=== PATIENT | female | born 1995 | race Caucasian/White ===

== ENCOUNTER → 2020-07-29 14:52 | Outpatient (BNVA) | payer OTHER, SELFPAY | PROVIDERS: PCP Internal Medicine; Visit Provider Obstetrics & Gynecology ==

== ENCOUNTER 2020-08-18 15:54 | Outpatient (REF) | payer OTHER, SELFPAY ==
--- NOTE | ~2020-08-18 | US_ITS ---
EXAM: Pelvic Ultrasound CLINICAL INDICATION: Irregular periods COMPARISON: None TECHNIQUE: The pelvis was evaluated using transabdominal and transvaginal imaging. FINDINGS: The uterus measures 6.7 x 2.7 x 4.6 cm in longitudinal by AP by transverse dimension. Linear echogenic structure within the endometrium is consistent with a properly positioned IUD. Evaluation of the endometrium is suboptimal secondary to artifact from IUD, however, the endometrial stripe does not appear thickened. The left ovary measures approximately 2.8 x 1.6 x 1.6 cm and is normal. The right ovary measures approximately 3.3 x 2.2 x 2.2 cm and contains a few prominent follicles versus small cysts, the largest measuring approximately 2 cm. There is no free fluid in the pelvis. US/US transvaginal IMPRESSION: 1. IUD in expected position. 2. Evaluation of the endometrium is suboptimal secondary to artifact from IUD, however, the endometrial stripe does not appear thickened. 3. Prominent follicles versus small cysts of the right ovary.
--- NOTE | ~2020-08-18 | US_ITS ---
EXAM: Pelvic Ultrasound CLINICAL INDICATION: Irregular periods COMPARISON: None TECHNIQUE: The pelvis was evaluated using transabdominal and transvaginal imaging. FINDINGS: The uterus measures 6.7 x 2.7 x 4.6 cm in longitudinal by AP by transverse dimension. Linear echogenic structure within the endometrium is consistent with a properly positioned IUD. Evaluation of the endometrium is suboptimal secondary to artifact from IUD, however, the endometrial stripe does not appear thickened. The left ovary measures approximately 2.8 x 1.6 x 1.6 cm and is normal. The right ovary measures approximately 3.3 x 2.2 x 2.2 cm and contains a few prominent follicles versus small cysts, the largest measuring approximately 2 cm. There is no free fluid in the pelvis. US/US pelvic complete IMPRESSION: 1. IUD in expected position. 2. Evaluation of the endometrium is suboptimal secondary to artifact from IUD, however, the endometrial stripe does not appear thickened. 3. Prominent follicles versus small cysts of the right ovary.
== END 2020-08-18 15:55 | disposition home or self-care (01) ==
LOC: HO.US 15:54
PROVIDERS: PCP Internal Medicine; Visit Provider Obstetrics & Gynecology
DX: N92.1 Excessive and frequent menstruation with irregular cycle (principal)
CPT/HCPCS: 76830; 76856

== ENCOUNTER 2020-08-25 08:58 | Outpatient (REF) | payer OTHER, SELFPAY ==
[2020-08-26 04:44] LABS: HBS Num1 1.44 mIU/mL (0-7.99); ~Hepatitis B Surface Antibody NONREACTIVE (Nonreactive)
[2020-08-26 09:11] LABS: Rubella IgG Antibody 2.89 Index
[2020-08-27 22:26] LABS: TS Negative Control Passed; TS Panel A 0; TS Panel B 0; TS Positive Control Passed; TSpotTB Negative (SeeBelow)
== END 2020-08-25 08:59 | disposition home or self-care (01) ==
LOC: HO.HMGCLDS 08:58
PROVIDERS: Nurse Practitioner Family; PCP Internal Medicine; Visit Provider Obstetrics & Gynecology
DX: Z02.0 Encounter for examination for admission to educational institution (principal); Z11.1 Encounter for screening for respiratory tuberculosis; N92.1 Excessive and frequent menstruation with irregular cycle
CPT/HCPCS: 36415; 86481; 86706; 86735; 86762; 86765; 86787

== ENCOUNTER 2020-08-25 11:46 | Outpatient (REF) | payer OTHER, SELFPAY ==
[2020-08-26 06:01] LABS: CT PCR NOT DETECTED (Not Detect.); NG PCR NOT DETECTED (Not Detect.)
== END 2020-08-25 11:47 | disposition home or self-care (01) ==
LOC: HO.LAB 11:46
PROVIDERS: Visit Provider Obstetrics & Gynecology
DX: Z11.3 Encounter for screening for infections with a predominantly sexual mode of transmission (principal); N92.1 Excessive and frequent menstruation with irregular cycle
CPT/HCPCS: 87491; 87591

== ENCOUNTER 2020-10-08 13:23 | Outpatient (REF) | payer OTHER, SELFPAY ==
[2020-10-09 03:52] LABS: HBS Num1 > 1000.00 mIU/mL (0-7.99); ~Hepatitis B Surface Antibody REACTIVE (Nonreactive)
[2020-10-11 12:52] LABS: TS Negative Control Passed; TS Panel A 3; TS Panel B 1; TS Positive Control Passed; TSpotTB Negative (SeeBelow)
== END 2020-10-08 13:24 | disposition home or self-care (01) ==
LOC: HO.LAB 13:23
PROVIDERS: PCP Internal Medicine; Visit Provider Internal Medicine
DX: Z11.1 Encounter for screening for respiratory tuberculosis (principal); Z01.84 Encounter for antibody response examination; Z20.2 Contact with and (suspected) exposure to infections with a predominantly sexual mode of transmission
CPT/HCPCS: 36415; 86481; 86706

== ENCOUNTER 2021-04-20 08:36 | Outpatient (REF) | payer OTHER, SELFPAY ==
[2021-04-20 14:17] LABS: CT PCR NOT DETECTED (Not Detect.); NG PCR NOT DETECTED (Not Detect.)
== END 2021-04-20 08:37 | disposition home or self-care (01) ==
LOC: HO.LAB 08:36
PROVIDERS: PCP Internal Medicine; Visit Provider Obstetrics & Gynecology
DX: Z30.433 Encounter for removal and reinsertion of intrauterine contraceptive device (principal); Z83.3 Family history of diabetes mellitus; Z82.49 Family history of ischemic heart disease and other diseases of the circulatory system; Z80.3 Family history of malignant neoplasm of breast
CPT/HCPCS: 58300; 58301; 87491; 87591

== ENCOUNTER 2021-04-24 11:12 | Outpatient (REF) | payer OTHER, SELFPAY ==
[2021-04-24 12:30] LABS: Hematocrit 36.8 % (37.0-47.0); Hemoglobin 11.8 g/dl (12.0-16.0); Mean Corpuscular HGB Conc 32.1 g/dl (31.0-35.0); Mean Corpuscular Hemoglobin 28.1 pg (27.0-33.0); Mean Corpuscular Volume 87.6 fL (80.0-98.0); Mean Platelet Volume 10.1 fL (9.4-12.3); Platelet Count 279 X10*3/uL (160-400); Red Cell Distribution Width 12.7 % (11.0-16.0); White Blood Count 7.3 X10*3/uL (4.8-10.8)
[2021-04-24 12:52] LABS: Alanine Aminotransferase 11 U/L (0-31); Albumin Level 4.2 g/dL (3.5-5.0); Alkaline Phosphatase 44 U/L (39-117); Anion Gap 8 (12-20); Aspartate Amino Transferase 17 U/L (5-31); Bilirubin Total 1.5 mg/dL (0.0-1.0); Blood Urea Nitrogen 14 mg/dL (9-16); Calcium 8.9 mg/dL (8.4-10.2); Carbon Dioxide 25 mmol/L (22-29); Chloride 107 mmol/L (96-108); Cholesterol 156 mg/dL; Estimated Glomerular Filt Rate > 60; Glucose Fasting 91 mg/dL (60-99); HDL Cholesterol 63 mg/dL; Iron 164 mcg/dL (30-160); LDL Cholesterol Calculated 80 mg/dl; Percent Iron Saturation 58 % (15-50); Potassium 4.4 mmol/L (3.3-5.1); Sodium 136 mmol/L (135-145); Total Iron Binding Capacity 282 mcg/dL (228-428); Total Protein 6.6 g/dL (6.5-8.0); Triglycerides 68 mg/dL; Unsaturated Iron Binding 118 ug/dL
[2021-04-24 13:02] LABS: TSH reflex Free T4 2.25 uIU/mL (0.32-4.0)
== END 2021-04-24 11:13 | disposition home or self-care (01) ==
LOC: HO.HMGCLDS 11:12
PROVIDERS: PCP Internal Medicine; Visit Provider Internal Medicine
DX: Z00.00 Encounter for general adult medical examination without abnormal findings (principal); R63.4 Abnormal weight loss
CPT/HCPCS: 36415; 80053; 80061; 83540; 84443; 85027

== ENCOUNTER → 2022-02-08 09:58 | Outpatient (RCR) | payer OTHER, SELFPAY ==
[2020-03-03 07:08] LABS: COVID-19 Test Negative (Negative)
[2020-03-10 08:08] LABS: COVID-19 Test Negative (Negative)
[2020-03-25 06:54] LABS: COVID-19 Test Negative (Negative)
== END | disposition home or self-care (01) ==
LOC: HO.EMPCOV 03-03 06:45
PROVIDERS: Visit Provider Internal Medicine
DX: Z20.828 Contact with and (suspected) exposure to other viral communicable diseases (principal)
CPT/HCPCS: 87635; C9803